=== PATIENT | female | born 1965 | race Caucasian/White ===

== ENCOUNTER 2022-04-28 20:04 | Emergency (ER) | payer SELFPAY ==
[2022-04-28 20:13] VITALS: BP 149/80; PULSE 90; RESP 20; BMI 26.4
[2022-04-28] MEDS ORDERED: KETOROLAC TROMETHAMINE 30 MG/1 ML VIAL IM ONE (21:46)
[2022-04-28] MEDS ORDERED: LIDOCAINE 5% TOPICAL PATCH TP ONE (21:46)
[2022-04-28] MEDS ORDERED: CYCLOBENZAPRINE HCL 10 MG TABLET (FP) PO ONE (21:46)
[2022-04-28] MEDS ORDERED: LIDOCAINE 5% TOPICAL PATCH ONE (22:05)
[2022-04-28] MEDS ORDERED: CYCLOBENZAPRINE HCL 10 MG TABLET (FP) ONE (22:05)
[2022-04-28] MEDS ORDERED: KETOROLAC TROMETHAMINE 30 MG/1 ML VIAL ONE (22:05)
[2022-04-28] MEDS ORDERED: ACETAMINOPHEN 500 MG TABLET (FP) PO ONE (23:08)
[2022-04-28] MEDS ORDERED: ACETAMINOPHEN 500 MG TABLET (FP) ONE (23:49)
== END 2022-04-29 00:23 | disposition home or self-care (01) ==
LOC: JER 20:04
PROC: 3E0233Z Introduction of Anti-inflammatory into Muscle, Percutaneous Approach (ICD-10-PCS; principal; 2022-04-28)
DX: M54.50 Low back pain, unspecified (principal)
CPT/HCPCS: 99284-25